=== PATIENT | male | born 1980 | race Asian ===

== ENCOUNTER 2017-10-13 19:57 | Outpatient (CLI) | payer OTHER | END 2017-10-13 20:07 | disposition short-term general hospital (02) | LOC: AMB 19:57 | DX: R22.0 Localized swelling, mass and lump, head (principal); M95.2 Other acquired deformity of head; R51 Headache; M54.2 Cervicalgia; V86.95XA Unspecified occupant of 3- or 4- wheeled all-terrain vehicle (ATV) injured in nontraffic accident, initial encounter; Y92.488 Other paved roadways as the place of occurrence of the external cause | CPT/HCPCS: A0425; A0427 ==

== ENCOUNTER 2017-10-13 20:15 | Emergency (ER) | payer OTHER ==
[~2017-10-13] VITALS: Ht 185.4 cm; Wt 68.0 kg
[2017-10-13 20:38] LABS: PLATELET COUNT 231 K/uL (142-355)
[2017-10-13 20:48] LABS: POTASSIUM 3.3 mmol/L (3.6-5.2); SODIUM 138 mmol/L (136-145)
[2017-10-13 21:45] VITALS: BP 112/70; TEMP 97.3
== END 2017-10-13 21:46 | disposition short-term general hospital (02) ==
LOC: ED 20:15
PROVIDERS: Specialist
PROC: 0T9B70Z Drainage of Bladder with Drainage Device, Via Natural or Artificial Opening (ICD-10-PCS; principal; 2017-10-13)
PROC: 0BH17EZ Insertion of Endotracheal Airway into Trachea, Via Natural or Artificial Opening (ICD-10-PCS; 2017-10-13)
DX: S09.90XA Unspecified injury of head, initial encounter (principal); S09.93XA Unspecified injury of face, initial encounter; V86.95XA Unspecified occupant of 3- or 4- wheeled all-terrain vehicle (ATV) injured in nontraffic accident, initial encounter
CPT/HCPCS: 31500; 51702; 80048; 80307; 85027; 96365; 96374; 99285; G0479; J0330; J2250; J2405